=== PATIENT | female | born 1965 | race African-American/Black ===

== ENCOUNTER 2020-02-18 10:19 | Outpatient (REF) | payer OTHER, SELFPAY ==
[2020-02-18 13:16] LABS: Blood Urea Nitrogen 13 mg/dL (9-16); Estimated Glomerular Filt Rate > 60
== END 2020-02-18 10:20 | disposition home or self-care (01) ==
LOC: HO.MDS 10:19
PROVIDERS: Visit Provider Psychiatry & Neurology Neurology
DX: G61.82 Multifocal motor neuropathy (principal); I67.1 Cerebral aneurysm, nonruptured
CPT/HCPCS: 82565; 84520; 96365; 96366; J1572

== ENCOUNTER 2020-02-19 09:55 | Outpatient (REF) | payer OTHER, SELFPAY | END 2020-02-19 09:56 | disposition home or self-care (01) | LOC: HO.MDS 09:55 | PROVIDERS: Visit Provider Psychiatry & Neurology Neurology | DX: G61.82 Multifocal motor neuropathy (principal) | CPT/HCPCS: 96365; 96366; J1572 ==

== ENCOUNTER 2020-02-27 09:35 | Outpatient (REF) | payer OTHER, SELFPAY ==
--- NOTE | 2020-02-27 | CT_ITS ---
EXAMINATION: CT ANGIOGRAM HEAD CLINICAL INFORMATION: Cerebral aneurysm. COMPARISON: Brain MRI from 12/12/2012. TECHNIQUE: Initial noncontrast logging operations inspector imaging of the head was performed. Noncontrast head CT was also performed. Test bolus sequences followed by intravenous administration 75 mL of Omnipaque 350. Helical imaging was performed in the axial plane from the skull base to the skull vertex. Delayed postcontrast imaging of the head was also performed. The data was processed at the chief medical technologist's workstation for generation of MIP sequences. Angled MIPs and volume rendered reformatted images were also generated at an offline 3D workstation. Stenoses are assessed in accordance with NASCET criteria unless otherwise indicated. DLP: 2007 mGy-cm This CT examination was performed using dose optimization techniques as appropriate, variously including the following: *Automated exposure control. *Adjustment of mA and/or kV according to patient size (this includes techniques or standardized protocols for targeted exams where dose is matched to indication/reason for exam; i.e. extremities or head). *Use of iterative reconstruction technique. FINDINGS: CT Head: Changes of prior right frontoparietal craniotomy. Subjacent encephalomalacia of the right frontal operculum. Chronic lacunar infarct of the right caudate head/anterior limb of the internal capsule. There is no evidence of acute intracranial hemorrhage or edematous territorial infarction. Basal ganglia mineralization. Scattered hypoattenuation in the periventricular and deep white matter. No evidence of new loss of jackson-white matter differentiation. Proportional prominence of the ventricles and sulcal spaces. No evidence for obstructive hydrocephalus. No abnormal mass effect or midline shift. No extra-axial fluid collections. No pathologic intra-axial enhancement or regional oligemia. No acute soft tissue or osseous abnormalities. Leftward nasal septal deviation with spurring. Mild mucosal thickening of the paranasal sinuses. The mastoid air cells and middle ear cavities are clear. Brain CTA: Intracranial Internal Carotid Arteries: Mild calcific atherosclerotic disease of the intracranial internal carotid arteries without occlusion or flow-limiting stenosis. Otherwise, normal contrast opacification of the petrous, cavernous, paraophthalmic, and supraclinoid segments of the internal carotid arteries without focal stenosis. There is a superiorly projecting 0.2 cm saccular aneurysm arising from the junction of the paraophthalmic and supraclinoid segments of the right internal carotid artery (image 87/277). Right Anterior Cerebral Artery: Normal A1 segment. Normal opacification of the distal segments of the ZARI. Left Anterior Cerebral Artery: Normal A1 segment. Normal opacification of the distal segments of the ZARI. Anterior Communicating Artery: Normal. Right Middle Cerebral Artery: Normal opacification of the M1 segment of the MCA without focal stenosis or occlusion. There is an M2 branch anteriorly that is diminutive from its origin of the contralateral side (image 87/277). The anterior branches of the right MCA are mildly attenuated relative to the contralateral side. Left Middle Cerebral Artery: Normal opacification of the M1 segment of the MCA without focal stenosis or occlusion. Normal arborization of the distal segments. Right Vertebral Artery: Normal opacification of the V4 segment. Normal opacification of the proximal segments of the posterior inferior cerebellar artery. Left Vertebral Artery: Normal opacification of the V4 segment. Normal opacification of the proximal segments of the posterior inferior cerebellar artery. Basilar Artery: Normal opacification without focal stenosis or occlusion. The basilar tip is patulous. Normal appearance of the proximal superior cerebellar arteries. There is a left lateral projecting 0.2 cm aneurysm arising from the basilar tip between the origins of the left superior cerebellar artery and P1 segment of the left [employer] (image 114/227). Right Posterior Cerebral Artery: Normal P1 segment. There is a 0.2 cm infundibulum arising from the distal right ICA at the origin of a diminutive right posterior communicating artery (image 94/277). Normal opacification of the distal segments of the [employer]. Left Posterior Cerebral Artery: Normal P1 segment. There is a 0.1 cm infundibulum arising from the distal left ICA at the origin of a diminutive left posterior communicating artery (image 94/277). Normal opacification of the distal segments of the [employer]. Normal opacification of the superior sagittal, straight, transverse, and sigmoid sinuses. CT/CT angio head IMPRESSION: 1. Changes of right frontoparietal craniotomy with chronic encephalomalacia of the subjacent right frontal operculum. Moderate underlying white matter disease. 2. There is a 0.2 cm aneurysm projecting superiorly from the junction of the paraophthalmic and supraclinoid segments of the right ICA. 3. There is a 0.2 cm aneurysm projecting left laterally from a patulous basilar tip arising between the origins of the left superior cerebellar artery and P1 segment of the left [employer]. 4. Small infundibulum of the bilateral posterior communicating arteries. 5. The anterior branches of the right MCA appear chronically attenuated.
[2020-02-27] MEDS: iohexoL 350 MG/ML 100 ML INFUS..BTL 75 ML IV (10:46)
== END 2020-02-27 09:36 | disposition home or self-care (01) ==
LOC: HO.CT 09:35
PROVIDERS: Visit Provider Psychiatry & Neurology Neurology
DX: I67.1 Cerebral aneurysm, nonruptured (principal)
CPT/HCPCS: 70496; Q9967

== ENCOUNTER 2020-03-10 09:29 | Outpatient (REF) | payer OTHER, SELFPAY | END 2020-03-10 09:30 | disposition home or self-care (01) | LOC: HO.MDS 09:29 | PROVIDERS: Visit Provider Psychiatry & Neurology Neurology | DX: G61.82 Multifocal motor neuropathy (principal) | CPT/HCPCS: 96365; 96366; J1572 ==

== ENCOUNTER 2020-03-11 09:48 | Outpatient (REF) | payer OTHER, SELFPAY | END 2020-03-11 09:49 | disposition home or self-care (01) | LOC: HO.MDS 09:48 | PROVIDERS: Visit Provider Psychiatry & Neurology Neurology | DX: G61.82 Multifocal motor neuropathy (principal) | CPT/HCPCS: 96365; 96366; J1572 ==

== ENCOUNTER 2020-04-07 08:58 | Outpatient (REF) | payer OTHER, SELFPAY | END 2020-04-07 08:59 | disposition home or self-care (01) | LOC: HO.MDS 08:58 | PROVIDERS: Visit Provider Psychiatry & Neurology Neurology | DX: G61.82 Multifocal motor neuropathy (principal) | CPT/HCPCS: 96365; 96366; J1572 ==

== ENCOUNTER 2020-04-08 10:58 | Outpatient (REF) | payer OTHER, SELFPAY | END 2020-04-08 10:59 | disposition home or self-care (01) | LOC: HO.MDS 10:58 | PROVIDERS: Visit Provider Psychiatry & Neurology Neurology | DX: G61.82 Multifocal motor neuropathy (principal) | CPT/HCPCS: 96365; 96366; 96413; J1572 ==

== ENCOUNTER 2020-05-12 08:50 | Outpatient (REF) | payer OTHER, SELFPAY | END 2020-05-12 08:51 | disposition home or self-care (01) | LOC: HO.MDS 08:50 | PROVIDERS: Visit Provider Psychiatry & Neurology Neurology | DX: G61.82 Multifocal motor neuropathy (principal) | CPT/HCPCS: 96365; 96366; J1572 ==

== ENCOUNTER 2020-05-13 09:06 | Outpatient (REF) | payer OTHER, SELFPAY | END 2020-05-13 09:07 | disposition home or self-care (01) | LOC: HO.MDS 09:06 | PROVIDERS: Visit Provider Psychiatry & Neurology Neurology | DX: G61.82 Multifocal motor neuropathy (principal) | CPT/HCPCS: 96365; 96366; J1572 ==

== ENCOUNTER 2020-06-16 10:33 | Outpatient (REF) | payer OTHER, SELFPAY | END 2020-06-16 10:34 | disposition home or self-care (01) | LOC: HO.MDS 10:33 | PROVIDERS: Visit Provider Psychiatry & Neurology Neurology | DX: G61.82 Multifocal motor neuropathy (principal) | CPT/HCPCS: 96365; 96366; J1572 ==

== ENCOUNTER 2020-06-17 08:48 | Outpatient (REF) | payer OTHER, SELFPAY | END 2020-06-17 08:49 | disposition home or self-care (01) | LOC: HO.MDS 08:48 | PROVIDERS: Visit Provider Psychiatry & Neurology Neurology | DX: G61.82 Multifocal motor neuropathy (principal) | CPT/HCPCS: 96365; 96366; J1572 ==

== ENCOUNTER 2020-07-14 08:48 | Outpatient (REF) | payer OTHER, SELFPAY | END 2020-07-14 08:49 | disposition home or self-care (01) | LOC: HO.MDS 08:48 | PROVIDERS: Visit Provider Psychiatry & Neurology Neurology | DX: G61.82 Multifocal motor neuropathy (principal) | CPT/HCPCS: 96365; 96366; J1572 ==

== ENCOUNTER 2020-07-15 08:52 | Outpatient (REF) | payer OTHER, SELFPAY | END 2020-07-15 08:53 | disposition home or self-care (01) | LOC: HO.MDS 08:52 | PROVIDERS: Visit Provider Psychiatry & Neurology Neurology | DX: G61.82 Multifocal motor neuropathy (principal) | CPT/HCPCS: 96365; 96366; J1572 ==

== ENCOUNTER 2020-08-18 09:37 | Outpatient (REF) | payer OTHER, SELFPAY | END 2020-08-18 09:38 | disposition home or self-care (01) | LOC: HO.MDS 09:37 | PROVIDERS: Visit Provider Psychiatry & Neurology Neurology | DX: G61.82 Multifocal motor neuropathy (principal) | CPT/HCPCS: 96365; 96366; J1572 ==

== ENCOUNTER 2020-08-19 11:08 | Outpatient (REF) | payer OTHER, SELFPAY | END 2020-08-19 11:09 | disposition home or self-care (01) | LOC: HO.MDS 11:08 | PROVIDERS: Visit Provider Psychiatry & Neurology Neurology | DX: G61.82 Multifocal motor neuropathy (principal) | CPT/HCPCS: 96365; 96366; J1572 ==

== ENCOUNTER 2020-09-15 09:31 | Outpatient (REF) | payer OTHER, SELFPAY | END 2020-09-15 09:32 | disposition home or self-care (01) | LOC: HO.MDS 09:31 | PROVIDERS: Visit Provider Psychiatry & Neurology Neurology | DX: G61.82 Multifocal motor neuropathy (principal) | CPT/HCPCS: 96365; 96366; J1572 ==

== ENCOUNTER 2020-09-16 09:06 | Outpatient (REF) | payer OTHER, SELFPAY | END 2020-09-16 09:07 | disposition home or self-care (01) | LOC: HO.MDS 09:06 | PROVIDERS: Visit Provider Psychiatry & Neurology Neurology | DX: G61.82 Multifocal motor neuropathy (principal) | CPT/HCPCS: 96365; 96366; J1572 ==

== ENCOUNTER 2020-10-13 09:11 | Outpatient (REF) | payer OTHER, SELFPAY | END 2020-10-13 09:12 | disposition home or self-care (01) | LOC: HO.MDS 09:11 | PROVIDERS: Visit Provider Psychiatry & Neurology Neurology | DX: G61.82 Multifocal motor neuropathy (principal) | CPT/HCPCS: 96365; 96366; J1572 ==

== ENCOUNTER 2020-10-14 09:04 | Outpatient (REF) | payer OTHER, SELFPAY | END 2020-10-14 09:05 | disposition home or self-care (01) | LOC: HO.MDS 09:04 | PROVIDERS: Visit Provider Psychiatry & Neurology Neurology | DX: G61.82 Multifocal motor neuropathy (principal) | CPT/HCPCS: 96365; 96366; J1572 ==

== ENCOUNTER 2020-11-17 09:21 | Outpatient (REF) | payer OTHER, SELFPAY | END 2020-11-17 09:22 | disposition home or self-care (01) | LOC: HO.MDS 09:21 | PROVIDERS: Visit Provider Psychiatry & Neurology Neurology | DX: G61.82 Multifocal motor neuropathy (principal) | CPT/HCPCS: 96365; 96366; J1569 ==

== ENCOUNTER 2020-11-18 09:25 | Outpatient (REF) | payer OTHER, SELFPAY | END 2020-11-18 09:26 | disposition home or self-care (01) | LOC: HO.MDS 09:25 | PROVIDERS: Visit Provider Psychiatry & Neurology Neurology | DX: G61.82 Multifocal motor neuropathy (principal) | CPT/HCPCS: 96365; 96366; J1569 ==

== ENCOUNTER 2020-12-30 09:50 | Outpatient (REF) | payer OTHER, SELFPAY | END 2020-12-30 09:51 | disposition home or self-care (01) | LOC: HO.MDS 09:50 | PROVIDERS: Visit Provider Psychiatry & Neurology Neurology | DX: G61.82 Multifocal motor neuropathy (principal) | CPT/HCPCS: 96365; 96366; J1569 ==

== ENCOUNTER 2020-12-31 09:34 | Outpatient (REF) | payer OTHER, SELFPAY | END 2020-12-31 09:35 | disposition home or self-care (01) | LOC: HO.MDS 09:34 | PROVIDERS: Visit Provider Psychiatry & Neurology Neurology | DX: G61.82 Multifocal motor neuropathy (principal) | CPT/HCPCS: 96365; 96366; J1569 ==

== ENCOUNTER 2021-02-18 10:08 | Outpatient (REF) | payer OTHER, SELFPAY | END 2021-02-18 10:09 | disposition home or self-care (01) | LOC: HO.MDS 10:08 | PROVIDERS: Visit Provider Psychiatry & Neurology Neurology | DX: G61.82 Multifocal motor neuropathy (principal) | CPT/HCPCS: 96365; 96366; J1569 ==

== ENCOUNTER 2021-02-19 10:12 | Outpatient (REF) | payer OTHER, SELFPAY | END 2021-02-19 10:13 | disposition home or self-care (01) | LOC: HO.MDS 10:12 | PROVIDERS: Visit Provider Psychiatry & Neurology Neurology | DX: G61.82 Multifocal motor neuropathy (principal) | CPT/HCPCS: 96365; 96366; J1569 ==

== ENCOUNTER 2021-04-07 09:53 | Outpatient (REF) | payer OTHER, SELFPAY | END 2021-04-07 09:54 | disposition home or self-care (01) | LOC: HO.MDS 09:53 | PROVIDERS: Visit Provider Psychiatry & Neurology Neurology | DX: G61.82 Multifocal motor neuropathy (principal) | CPT/HCPCS: 96365; 96366; J1569 ==

== ENCOUNTER 2021-04-08 09:59 | Outpatient (REF) | payer OTHER, SELFPAY | END 2021-04-08 10:00 | disposition home or self-care (01) | LOC: HO.MDS 09:59 | PROVIDERS: Visit Provider Psychiatry & Neurology Neurology | DX: G61.82 Multifocal motor neuropathy (principal) | CPT/HCPCS: 96365; 96366; J1569 ==

== ENCOUNTER 2021-05-19 10:17 | Outpatient (REF) | payer OTHER, SELFPAY | END 2021-05-19 10:18 | disposition home or self-care (01) | LOC: HO.MDS 10:17 | PROVIDERS: Visit Provider Psychiatry & Neurology Neurology | DX: G61.82 Multifocal motor neuropathy (principal) | CPT/HCPCS: 96365; 96366; J1569 ==

== ENCOUNTER 2021-05-20 10:07 | Outpatient (REF) | payer OTHER, SELFPAY | END 2021-05-20 10:08 | disposition home or self-care (01) | LOC: HO.MDS 10:07 | PROVIDERS: Visit Provider Psychiatry & Neurology Neurology | DX: G61.82 Multifocal motor neuropathy (principal) | CPT/HCPCS: 96365; 96366; J1569 ==

== ENCOUNTER 2021-06-15 10:05 | Outpatient (REF) | payer OTHER, SELFPAY | END 2021-06-15 10:06 | disposition home or self-care (01) | LOC: HO.MDS 10:05 | PROVIDERS: Visit Provider Psychiatry & Neurology Neurology | DX: G61.82 Multifocal motor neuropathy (principal) | CPT/HCPCS: 96365; 96366; J1569 ==

== ENCOUNTER 2021-07-14 12:14 | Outpatient (REF) | payer OTHER, SELFPAY | END 2021-07-14 12:15 | disposition home or self-care (01) | LOC: HO.MDS 12:14 | PROVIDERS: Visit Provider Psychiatry & Neurology Neurology | DX: G61.82 Multifocal motor neuropathy (principal) | CPT/HCPCS: 96365; 96366; J1569 ==

== ENCOUNTER 2021-07-15 09:57 | Outpatient (REF) | payer OTHER, SELFPAY | END 2021-07-15 09:58 | disposition home or self-care (01) | LOC: HO.MDS 09:57 | PROVIDERS: Visit Provider Psychiatry & Neurology Neurology | DX: G61.82 Multifocal motor neuropathy (principal) | CPT/HCPCS: 96365; 96366; J1569 ==

== ENCOUNTER 2021-07-27 10:52 | Outpatient (REF) | payer OTHER, SELFPAY ==
[2021-07-27 11:17] LABS: MANUAL DIFF FLAG NO
[2021-07-27 11:48] LABS: Basophils Percent Auto 0.1 % (0-2); Eosinophils Percent Auto 0.1 % (0-4); Hematocrit 32.5 % (37.0-47.0); Hemoglobin 9.6 g/dl (12.0-16.0); Imm Gran Abs Auto 0.02 X10*3/uL (0.00-0.03); Imm Gran Pct Auto 0.3 % (0.0-0.4); Lymphocytes Absolute Auto 1.1 X10*3/uL (1.2-4.9); Lymphocytes Percent Auto 15.9 % (20-40); Mean Corpuscular HGB Conc 29.5 g/dl (31.0-35.0); Mean Corpuscular Volume 84.6 fL (80.0-98.0); Mean Platelet Volume 10.6 fL (9.4-12.3); Monocytes Absolute Auto 0.4 X10*3/uL (0.1-1.2); Monocytes Percent Auto 5.8 % (2-11); Neutrophils Absolute Auto 5.3 x10*3/uL (2.0-8.3); Neutrophils Percent Auto 77.8 % (45-73); Platelet Count 282 X10*3/uL (160-400); Red Blood Count 3.84 X10*6/uL (4.20-5.50); Red Cell Distribution Width 14.9 % (11.0-16.0); White Blood Count 6.8 X10*3/uL (4.8-10.8)
[2021-07-27 12:00] LABS: Estimated Average Glucose 140 mg/dL; Hemoglobin A1c % 6.5 %
[2021-07-27 12:36] LABS: Anion Gap 11 (12-20); Blood Urea Nitrogen 9 mg/dL (9-16); Calcium 9.5 mg/dL (8.4-10.2); Carbon Dioxide 29 mmol/L (22-29); Chloride 104 mmol/L (96-108); Estimated Glomerular Filt Rate > 60; Glucose Random 127 mg/dL (60-115); Potassium 4.1 mmol/L (3.3-5.1); Sodium 140 mmol/L (135-145)
[2021-07-27 12:45] LABS: Thyroid Stimulating Hormone 0.87 uIU/mL (0.32-4.0)
== END 2021-07-27 10:53 | disposition home or self-care (01) ==
LOC: HO.LAB 10:52
PROVIDERS: Visit Provider Psychiatry & Neurology Neurology
DX: G61.89 Other inflammatory polyneuropathies (principal)
CPT/HCPCS: 36415; 80048; 82550; 83036; 84443; 85025

== ENCOUNTER 2022-07-11 13:01 | Outpatient (REF) | payer OTHER, SELFPAY ==
[2022-07-11 13:17] LABS: MANUAL DIFF FLAG NO
[2022-07-11 13:31] LABS: Eosinophils Percent Auto 0.2 % (0-4); Hematocrit 32.7 % (37.0-47.0); Hemoglobin 9.7 g/dl (12.0-16.0); Imm Gran Abs Auto 0.01 X10*3/uL (0.00-0.03); Imm Gran Pct Auto 0.2 % (0.0-0.4); Lymphocytes Absolute Auto 0.9 X10*3/uL (1.2-4.9); Mean Corpuscular HGB Conc 29.7 g/dl (31.0-35.0); Mean Corpuscular Hemoglobin 26.5 pg (27.0-33.0); Mean Corpuscular Volume 89.3 fL (80.0-98.0); Mean Platelet Volume 9.7 fL (9.4-12.3); Monocytes Absolute Auto 0.2 X10*3/uL (0.1-1.2); Neutrophils Percent Auto 77.6 % (45-73); Platelet Count 241 X10*3/uL (160-400); Red Blood Count 3.66 X10*6/uL (4.20-5.50); Red Cell Distribution Width 15.5 % (11.0-16.0); White Blood Count 5.2 X10*3/uL (4.8-10.8)
[2022-07-11 13:53] LABS: Anion Gap 16 (12-20); Blood Urea Nitrogen 12 mg/dL (9-16); Calcium 9.3 mg/dL (8.4-10.2); Carbon Dioxide 27 mmol/L (22-29); Chloride 102 mmol/L (96-108); Estimated Glomerular Filt Rate > 60; Glucose Random 205 mg/dL (60-115); Potassium 4.3 mmol/L (3.3-5.1); Sodium 141 mmol/L (135-145)
[2022-07-11 14:35] LABS: Erythrocyte Sedimentation Rate 14 MM/HR (0-20)
== END 2022-07-11 13:02 | disposition home or self-care (01) ==
LOC: HO.LAB 13:01
PROVIDERS: Visit Provider Psychiatry & Neurology Neurology
DX: G61.89 Other inflammatory polyneuropathies (principal)
CPT/HCPCS: 36415; 80048; 82550; 85025; 85652